=== PATIENT | female | born 1990 | race Caucasian/White ===

== ENCOUNTER → 2016-07-13 | Outpatient (CLI) | payer BC ==
--- NOTE | 2016-07-13 11:33 | CT ---
EXAMINATION TYPE: CT iac wo con DATE OF EXAM: 07/13/2016 11:24 AM COMPARISON: NONE HISTORY: Hearing loss CT DLP: 150mGycm Automated exposure control for dose reduction was used. FINDINGS: The external auditory canals are patent bilaterally. Mastoid air cells show no evidence of abnormal opacification bilaterally. The middle ear ossicles are symmetric and unremarkable. There is no evidence of suspicious surrounding soft tissue density to suggest cholesteatoma. The scu vinay is preserved bilaterally. The cochlea and the semicircular canals are symmetric and unremarkable . Vestibular aqueduct and internal carotid canal appear unremarkable. Temporomandibular joints are meena ntained bilaterally. IMPRESSION: 1. No significant abnormality seen to account for patient's symptoms.
== END | disposition home or self-care (01) ==
LOC: RADCTMAIN 11:04
PROVIDERS: ATTEND Otolaryngology
DX: H91.91 Unspecified hearing loss, right ear (principal)
CPT/HCPCS: 70480